=== PATIENT | female | born 1960 | race Two or more races ===

== ENCOUNTER 2017-04-27 09:56 | Emergency (ER) | payer SELFPAY ==
[2017-04-27] MEDS ORDERED: HYDROcodone/APAP 5/325MG 1 TAB TABLET PO ONE (10:45)
[2017-04-27] MEDS ORDERED: AMOX500C PO (10:47)
--- NOTE | 2017-04-27 10:47 | PHYS DOC ---
Past Medical History Past Medical History: No Pertinent History Past Surgical History: No Surgical History Alcohol Use: None Drug Use: None Adult General Chief Complaint Chief Complaint: DENTAL PROBLEM [facility] HPI Patient is a 57 year old female presents to the emergency department with a 3 days history of dental pain. Patient is [place] speaking only daughter is at bedside and interpreting for patient. Patient denies fever, chills or any nausea or vomiting. Patient states that she has having dental pain along the frontal part on the right. She has 4 teeth noted in the front with no teeth noted throughout the rest of the lower dental area. She is complaining of the last tooth on the left being painful and discomfort. Daughter states that they went by the dentist today to try to get her some pain relief with them recommended Tylenol and ibuprofen for pain and discomfort and keeping the appointment on Tuesday. Patient states that she is in too much discomfort that they came here. Review of Systems Review of Systems Constitutional: Denies fever or chills [] Eyes: Denies change in visual acuity, redness, or eye pain [] HENT: Denies nasal congestion or sore throat. C/o dental pain Respiratory: Denies cough or shortness of breath [] Cardiovascular: No additional information not addressed in HPI [] GI: Denies abdominal pain, nausea, vomiting, bloody stools or diarrhea [] : Denies dysuria or hematuria [] Musculoskeletal: Denies back pain or joint pain [] Integument: Denies rash or skin lesions [] Neurologic: Denies headache, focal weakness or sensory changes [] Endocrine: Denies polyuria or polydipsia [] Allergies Allergies Allergies Coded Allergies Type Severity Reaction Last Updated Verified No Known Drug Allergies 04/27/17 No Physical Exam Physical Exam Constitutional: Well developed, well nourished, no acute distress, non-toxic appearance. [] HENT: Normocephalic, atraumatic, bilateral external ears normal, oropharynx moist, no oral exudates, nose normal. Bilateral TM normal, throat without erythema, no exudate noted. Patient with redness and tenderness noted to the left lower tooth, 2nd from the front. No drainage or discharge noted. Patient with no trismus noted. Eyes: PERRLA, EOMI, conjunctiva normal, no discharge. [] Neck: Normal range of motion, no tenderness, supple, no stridor. [] Cardiovascular:Heart rate regular rhythm, no murmur [] Lungs & Thorax: Bilateral breath sounds clear to auscultation [] Skin: Warm, dry, no erythema, no rash. [] Back: No tenderness Extremities: No tenderness, no cyanosis, no clubbing, ROM intact, no edema. [] Neurologic: Alert and oriented X 3, normal motor function, normal sensory function, no focal deficits noted. [] Psychologic: Affect normal, judgement normal, mood normal. [] Current Patient Data Vital Signs Vital Signs Date Time Temp Pulse Resp B/P (MAP) Pulse Ox O2 Delivery O2 Flow Rate FiO2 04/27/17 10:00 98.4 78 18 98 Room Air 98.4 EKG EKG [] Radiology/Procedures Radiology/Procedures [] Course & Med Decision Making Course & Med Decision Making Pertinent Labs and Imaging studies reviewed. (See chart for details) She'll be provided with amoxicillin. Recommended Tylenol or ibuprofen for pain and discomfort. She'll be provided with hydrocodone here in the emergency department. Patient agrees with discharge instructions, treatment regimens and follow-up recommendations. Signs symptoms to return back to emergency department has been provided. Patient was encouraged to keep her appointment which she has on Tuesday with the dentist. [] Dragon Disclaimer Dragon Disclaimer This electronic medical record was generated, in whole or in part, using a voice recognition dictation system. Departure Departure Impression: Primary Impression: Dental abscess Disposition: 01 HOME, SELF-CARE Condition: STABLE Patient Instructions: Dental Abscess Additional Instructions: Activity as tolerated Continue with Ibuprofen and Tylenol at home for pain. Make sure when you take the ibuprofen you eat when taking this medication as it may cause upset stomach Antibiotic as prescribed Keep your appointment you have with the dentist on Tuesday Return to emergency department as needed Scripts Amoxicillin (AMOXICILLIN) 500 Mg Capsule 1 CAP PO QID, #40 CAP Prov: KRYSTAL BERRY APRN 04/27/17 KRYSTAL BERRY APRN Apr 27, 2017 10:47
[2017-04-27 10:55] VITALS: BP 183/87
== END 2017-04-27 11:00 | disposition home or self-care (01) ==
LOC: ER 09:56
DX: T78.40XA Allergy, unspecified, initial encounter (principal); Z88.5 Allergy status to narcotic agent; Z88.6 Allergy status to analgesic agent
CPT/HCPCS: 99283